=== PATIENT | male | born 1975 | race Asian ===

== ENCOUNTER 2020-01-27 15:36 | Emergency (ER) | payer OTHER ==
[2020-01-27] MEDS ORDERED: NA CHLORIDE 0.9% 1,000 ML ONE (16:36)
[2020-01-27] MEDS ORDERED: NITROGLYCERIN/D5W 50 MG/250 ML BTL IV ONE (16:43)
[2020-01-27 16:53] LABS: Absolute Lymphocytes (CBC) 1.5 K/uL (0.7-4.9); Basophils % 0.4 % (0-1.3); Hematocrit 44.6 % (39.6-49.0); Lymphocytes % 18.5 % (15.3-44.8); MPV 7.8 fL (7.6-11.3); RBC Red Blood Cell Count 5.23 M/uL (4.33-5.43)
[2020-01-27 16:54] LABS: Protime INR 0.97
--- NOTE | 2020-01-27 17:09 | RAD REPORT ---
EXAM DESCRIPTION: RAD - Chest Single View - 01/27/2020 4:45 pm CLINICAL HISTORY: CHEST PAIN COMPARISON: June 2015 TECHNIQUE: AP portable chest image was obtained 01/27/2020 4:45 pm . FINDINGS: Lungs are clear. Heart and vasculature are normal. No measurable pleural effusion and no p neumothorax. No acute bony abnormality seen. No acute aortic findings suspected. IMPRESSION: No acute cardiopulmonary process.
[2020-01-27 17:17] LABS: ALT/SGPT 127 U/L (12-78); AST/SGOT 50 U/L (15-37); Albumin 4.2 g/dL (3.4-5.0); Alkaline Phosphatase 63 U/L (45-117); BUN Blood Urea Nitrogen 15 mg/dL (7-18); Bicarbonate 24 mmol/L (21-32); Bilirubin Direct 0.1 mg/dL (0-0.2); Bilirubin Total 0.4 mg/dL (0.2-1.0); Glucose Level 131 mg/dL (74-106); Magnesium 2.2 mg/dL (1.8-2.4); NT PRO-BNP 11 pg/mL (<125); Potassium 3.7 mmol/L (3.5-5.1); Protein, Total 8.2 g/dL (6.4-8.2); Sodium Level 139 mmol/L (136-145); Troponin (Emerg Dept Use Only) < 0.02 ng/mL (0.0-0.045)
--- NOTE | 2020-01-27 19:17 | RAD REPORT ---
EXAM DESCRIPTION: CT - Head Brain Wo Cont - 01/27/2020 7:08 pm CLINICAL HISTORY: HEADACHE, hypertension COMPARISON: No comparisons TECHNIQUE: Axial 5 mm thick images of the head were obtained without IV contrast. All CT scans are performed using dose optimization technique as appropriate and may include automated exposure control or mA/KV adjustment according to patient size. FINDINGS: No intracranial hemorrhage, mass, edema or shift of mid-line structures. No acute infarcti on changes seen. No abnormal extra-axial fluid collections. Ventricles are normal. Mastoid air cells and visualized portions of the paranasal sinuses are clear. No acute bony findings. IMPRESSION: Negative non-contrast CT head examination.
--- NOTE | 2020-01-27 19:24 | EDPHYS ---
Physician Documentation [facility] Name: Efren Bedoya Age: 44 yrs Sex: Male : 1975 Arrival Date: 01/27/2020 Time: 15:40 Bed 15 Private MD: ED Physician Hunter Reyes HPI: 01/26 17:57 This 44 yrs old Male presents to ER via Ambulatory with complaints of High Blood kb Pressure, Fast Heart rate. 17:57 The patient has elevated blood pressure and discovered this at home, with a home kb device. Onset: The symptoms/episode began/occurred 1 week(s) ago. Associated signs and symptoms: Pertinent positives: headache, lightheadedness, weakness, Pertinent negatives: chest pain, dizziness, dyspnea, nausea, visual changes, vomiting. Severity of symptoms: At its worst the blood pressure was 140 mm Hg. The patient has not experienced similar symptoms in the past. The patient has not recently seen a physician. Pt reports his heart rate and blood pressure have been elevated over the last week. Reports he had a headache a few times over the last week, none today. Reports he had some chest pressure for a little while last week, but none since then. States he was shaky, lightheaded and weak this morning so he checked his blood sugar and it was 60. After eating he felt better, but was anxious about it all so he wanted to come and get checked out.. Historical: - Allergies: 15:47 NKA; sv - PMHx: 15:47 High Cholesterol; Hypertension; sv - PSHx: 15:47 Appendectomy; sv - Immunization history:: Flu vaccine is up to date. - Social history:: Smoking status: Patient reports the use of cigarette tobacco products, denies chronic smoking, but will smoke occasionally. ROS: 17:56 Constitutional: Negative for fever, chills, and weight loss, Neck: Negative for injury, kb pain, and swelling, Cardiovascular: Negative for chest pain, palpitations, and edema, Respiratory: Negative for shortness of breath, cough, wheezing, and pleuritic chest pain, Abdomen/GI: Negative for abdominal pain, nausea, vomiting, diarrhea, and constipation, Back: Negative for injury and pain, MS/Extremity: Negative for injury and deformity, Skin: Negative for injury, rash, and discoloration. 17:56 Neuro: Positive for weakness, "shaky". Exam: 17:05 Constitutional: This is a well developed, well nourished patient who is awake, alert, kb and in no acute distress. Head/Face: Normocephalic, atraumatic. Eyes: Pupils equal round and reactive to light, extra-ocular motions intact. Lids and lashes normal. Conjunctiva and sclera are non-icteric and not injected. Cornea within normal limits. Periorbital areas with no swelling, redness, or edema. ENT: Nares patent. No nasal discharge, no septal abnormalities noted. Tympanic membranes are normal and external auditory canals are clear. Oropharynx with no redness, swelling, or masses, exudates, or evidence of obstruction, uvula midline. Mucous membranes moist. Neck: Trachea midline, no thyromegaly or masses palpated, and no cervical lymphadenopathy. Supple, full range of motion without nuchal rigidity, or vertebral point tenderness. No Meningismus. Chest/axilla: Normal chest wall appearance and motion. Nontender with no deformity. No lesions are appreciated. Respiratory: Lungs have equal breath sounds bilaterally, clear to auscultation and percussion. No rales, rhonchi or wheezes noted. No increased work of breathing, no retractions or nasal flaring. Abdomen/GI: Soft, non-tender, with normal bowel sounds. No distension or tympany. No guarding or rebound. No evidence of tenderness throughout. Skin: Warm, dry with normal turgor. Normal color with no rashes, no lesions, and no evidence of cellulitis. MS/ Extremity: Pulses equal, no cyanosis. Neurovascular intact. Full, normal range of motion. Neuro: Awake and alert, GCS 15, oriented to person, place, time, and situation. Cranial nerves II-XII grossly intact. Motor strength 5/5 in all extremities. Sensory grossly intact. Cerebellar exam normal. Normal gait. 17:05 Cardiovascular: Rate: tachycardic, Rhythm: regular, Pulses: no pulse deficits are appreciated, Heart sounds: normal, normal S1and S2, no murmur. 17:06 ECG was reviewed by the Attending Physician. Vital Signs: 15:45 BP 153 / 99; Pulse 112; Resp 18; Temp 98.5; Pulse Ox 100% ; Weight 99.79 kg; Height 5 sv ft. 7 in. (170.18 cm); 16:30 BP 135 / 95; Pulse 102; Resp 13; Pulse Ox 100% ; ah 17:30 BP 131 / 90; Pulse 95; Resp 15; Pulse Ox 100% ; ah 18:30 BP 142 / 92; Pulse 106; Resp 17; Pulse Ox 100% ; ah 19:00 BP 138 / 92; Pulse 99; Resp 17; Pulse Ox 100% ; ah 15:45 Body Mass Index 34.46 (99.79 kg, 170.18 cm) sv MDM: 16:14 Patient medically screened. kb 17:57 Data reviewed: vital signs, nurses notes. Data interpreted: Pulse oximetry: on room air kb is 100 %. Interpretation: normal. Counseling: I had a detailed discussion with the patient and/or guardian regarding: the historical points, exam findings, and any diagnostic results supporting the discharge/admit diagnosis, lab results, radiology results, the need for outpatient follow up, a family practitioner, to return to the emergency department if symptoms worsen or persist or if there are any questions or concerns that arise at home. 01/26 16:20 Order name: Basic Metabolic Panel; Complete Time: 17:22 kb 01/26 16:20 Order name: CBC with Diff; Complete Time: 16:57 kb 01/26 16:20 Order name: LFT's; Complete Time: 17:22 kb 01/26 16:20 Order name: Magnesium; Complete Time: 17:22 kb 01/26 16:20 Order name: NT PRO-BNP; Complete Time: 17:22 kb 01/26 16:20 Order name: PT-INR; Complete Time: 16:55 kb 01/26 16:20 Order name: Troponin (emerg Dept Use Only); Complete Time: 17:22 kb 01/26 16:20 Order name: XRAY Chest (1 view); Complete Time: 17:12 kb 01/26 16:20 Order name: EKG; Complete Time: 16:21 kb 01/26 16:20 Order name: Cardiac monitoring; Complete Time: 16:33 kb 01/26 18:16 Order name: Troponin (emerg Dept Use Only); Complete Time: 19:07 iw 01/26 18:30 Order name: CT Head Brain wo Cont; Complete Time: 19:21 kb 01/26 16:20 Order name: EKG - Nurse/Tech; Complete Time: 16:34 kb 01/26 16:20 Order name: IV Saline Lock; Complete Time: 16:47 kb 01/26 16:20 Order name: Labs collected and sent; Complete Time: 16:47 kb 01/26 16:20 Order name: O2 Per Protocol; Complete Time: 16:33 kb 01/26 16:20 Order name: O2 Sat Monitoring; Complete Time: 16:33 kb 01/26 17:51 Order name: Vital Signs; Complete Time: 18:31 kb 01/26 18:16 Order name: EKG - Nurse/Tech; Complete Time: 18:30 iw EC:06 Rate is 102 beats/min. Rhythm is regular, Sinus tachycardia. QRS Kerrick is Normal. MT kb interval is normal at 198 msec. QRS interval is normal at 84 msec. QT interval is normal at 338 msec. Administered Medications: 16:49 Drug: NS 0.9% 1000 ml Route: IV; Rate: 1000 ml; Site: left antecubital; 19:49 Follow up: Response: No adverse reaction; IV Status: Completed infusion 19:11 Not Given (per order, Pt denies headache): Tylenol 1000 mg PO once ah Disposition: 01/27/20 19:24 Discharged to Home. Impression: Essential (primary) hypertension. - Condition is Stable. - Discharge Instructions: Hypertension, [id number], General Headache Without Cause, Wkbx-ti-Kakn. - Medication Reconciliation Form, Thank You Letter, Antibiotic Education, Prescription Opioid Use form. - Follow up: Emergency Department; When: As needed; Reason: Worsening of condition. Follow up: Private Physician; When: 2 - 3 days; Reason: Recheck today's complaints, Continuance of care, Re-evaluation by your physician. Signatures: Dispatcher [employer] EDKS Iris Santillan, DAVID-C INSURANCE SALES PROFESSIONAL-Sophia Romero RN Kika Sanchez RN RN iw Harris, Amy, RN RN Corrections: (The following items were deleted from the chart) 20:02 19:24 01/27/2020 19:24 Discharged to Home. Impression: Essential (primary) ah hypertension. Condition is Stable. Forms are Medication Reconciliation Form, Thank You Letter, Antibiotic Education, Prescription Opioid Use. Follow up: Emergency Department; When: As needed; Reason: Worsening of condition. Follow up: Private Physician; When: 2 - 3 days; Reason: Recheck today's complaints, Continuance of care, Re-evaluation by your physician. kb
--- NOTE | 2020-01-27 19:24 | ER ---
Nurse's Notes [facility] Name: Efren Bedoya Age: 44 yrs Sex: Male : 1975 Arrival Date: 01/27/2020 Time: 15:40 Bed 15 Private MD: Diagnosis: Essential (primary) hypertension Presentation: 01/26 15:45 Chief complaint: Patient states: HTN SPB 140 and tachycardia in the 110s, "Today I felt sv kind of uneasy." c/o headache. Denies CP, SOB, dizziness. Coronavirus screen: Proceed with normal triage. Patient denies a cough. Patient denies shortness of breath or difficulty breathing. Patient denies measured and/or subjective temperature greater than 100.4F prior to today's visit. Patient denies travel on a cruise ship or to a country the [facility] currently lists as an affected area. Patient denies contact with known and/or suspected case of COVID-19. Ebola Screen: No symptoms or risks identified at this time. Initial Sepsis Screen: Does the patient meet any 2 criteria? HR > 90 bpm. No. Patient's initial sepsis screen is negative. Does the patient have a suspected source of infection? No. Patient's initial sepsis screen is negative. Risk Assessment: Do you want to hurt yourself or someone else? Patient reports no desire to harm self or others. Onset of symptoms was January 27, 2020. 15:45 Method Of Arrival: Ambulatory sv 15:45 Acuity: GRACE 2 sv Triage Assessment: 15:47 General: Appears in no apparent distress. uncomfortable, Behavior is calm, cooperative, sv appropriate for age. Neuro: Level of Consciousness is awake, alert, obeys commands, Gait is steady. Respiratory: Respiratory effort is even, unlabored, Respiratory pattern is regular, symmetrical. Historical: - Allergies: 15:47 NKA; sv - PMHx: 15:47 High Cholesterol; Hypertension; sv - PSHx: 15:47 Appendectomy; sv - Immunization history:: Flu vaccine is up to date. - Social history:: Smoking status: Patient reports the use of cigarette tobacco products, denies chronic smoking, but will smoke occasionally. Screenin:27 Abuse screen: Denies threats or abuse. Nutritional screening: No deficits noted. Tuberculosis screening: No symptoms or risk factors identified. Fall Risk None identified. Assessment: 16:40 General: Appears in no apparent distress. Behavior is calm, cooperative. Pain: Denies ah pain. Neuro: Level of Consciousness is awake, alert, Oriented to person, place, time. Cardiovascular: Heart tones S1 S2 present Capillary refill < 3 seconds Patient's skin is warm and dry. Cardiovascular: Rhythm is sinus tachycardia Chest pain is denied. Respiratory: Airway is patent Respiratory effort is even, unlabored, Respiratory pattern is regular, symmetrical, Breath sounds are clear bilaterally. GI: Abdomen is non-distended, Bowel sounds present X 4 quads. Abd is non tender. : No signs and/or symptoms were reported regarding the genitourinary system. EENT: No signs and/or symptoms were reported regarding the EENT system. Derm: No signs and/or symptoms reported regarding the dermatologic system. Musculoskeletal: No signs and/or symptoms reported regarding the musculoskeletal system. 17:45 Reassessment: No changes from previously documented assessment. Patient is alert, ah oriented x 3, equal unlabored respirations, skin warm/dry/pink. Patient denies pain at this time. 19:00 Reassessment: Awaiting results from radiology. 19:45 Reassessment: Discharge instructions given to Pt. Advised Pt to follow up with PCP next week. Pt voiced understanding. Vital Signs: 15:45 BP 153 / 99; Pulse 112; Resp 18; Temp 98.5; Pulse Ox 100% ; Weight 99.79 kg; Height 5 sv ft. 7 in. (170.18 cm); 16:30 BP 135 / 95; Pulse 102; Resp 13; Pulse Ox 100% ; ah 17:30 BP 131 / 90; Pulse 95; Resp 15; Pulse Ox 100% ; ah 18:30 BP 142 / 92; Pulse 106; Resp 17; Pulse Ox 100% ; ah 19:00 BP 138 / 92; Pulse 99; Resp 17; Pulse Ox 100% ; ah 15:45 Body Mass Index 34.46 (99.79 kg, 170.18 cm) sv ED Course: 15:40 Patient arrived in ED. mr 15:46 Triage completed. sv 15:47 Arm band placed on. sv 15:49 Natalie Luciano, RN is Primary Nurse. ah 16:10 EKG done, by ED staff, reviewed by Iris WILL. jp3 16:14 Iris Sanitllan FNP-C is [facility]. kb 16:14 Hunter Reyes DO is Attending Physician. kb 16:35 Inserted saline lock: 22 gauge in left antecubital area, using aseptic technique. Missed attempt(s): 22 gauge in right antecubital area. Bleeding controlled, band aid applied, catheter tip intact. 16:35 Initial lab(s) drawn, by ED staff, sent to lab. [facility] 16:46 XRAY Chest (1 view) In Process Unspecified. EDMS 18:29 Repeat lab(s) drawn. by ct, sent to lab. EKG done, by ED staff, reviewed by Iris WILL. 18:30 Patient has correct armband on for positive identification. Placed in gown. Bed in low ah position. Call light in reach. Side rails up X 1. 18:30 No provider procedures requiring assistance completed. IV discontinued, intact, ah bleeding controlled, No redness/swelling at site. Pressure dressing applied. 18:31 Troponin (emerg Dept Use Only) Sent. jp3 19:[address] via stretcher. 19:08 CT Head Brain wo Cont In Process Unspecified. EDMS 19:11 Patient moved back from CT. Administered Medications: 16:49 Drug: NS 0.9% 1000 ml Route: IV; Rate: 1000 ml; Site: left antecubital; 19:49 Follow up: Response: No adverse reaction; IV Status: Completed infusion 19:11 Not Given (per order, Pt denies headache): Tylenol 1000 mg PO once ah Outcome: 19:24 Discharge ordered by MD. kb 19:45 Discharged to home ambulatory. 19:45 Condition: stable 19:45 Discharge instructions given to patient, Instructed on discharge instructions, follow up and referral plans. Demonstrated understanding of instructions, follow-up care. 20:02 Patient left the ED. Signatures: Dispatcher [employer] EDCO Iris Santillan FNP-C FNP-Sophia Romero, RN Torrie Taylor mr HermanCarl 3 Natalie Luciano RN RN ah
[2020-01-27 20:15] VITALS: TEMP 98.5; O2SAT 100
[2020-01-27 20:20] VITALS: BP 138/92
--- NOTE | 2020-01-28 07:34 | EKG ---
Test Date: 2020-01-27 Test Time: 18:20:37 Java Project Manager: RAAD MEASUREMENT RESULTS: Intervals: Rate: 94 [place]: 204 QRSD: 80 QT: 362 QTc: 452 Ulysses: P: 75 [place]: 204 QRS: 68 T: 49 INTERPRETIVE STATEMENTS: Normal sinus rhythm Normal ECG No previous ECG available for comparison Electronically Signed On 01-28-20 07:33:07 CDT by Joseph Arita
--- NOTE | 2020-01-30 20:17 | EKG ---
Test Date: 2020-01-27 Test Time: 16:10:47 Industrial Relations Analyst: Bogdan Luciano MEASUREMENT RESULTS: Intervals: Rate: 102 [place]: 198 QRSD: 84 QT: 338 QTc: 440 Gray: P: 63 [place]: 198 QRS: 30 T: 41 INTERPRETIVE STATEMENTS: Sinus tachycardia Otherwise normal ECG No previous ECG available for comparison Electronically Signed On 01-30-20 20:11:35 CDT by Joseph Arita
== END 2020-01-27 20:02 | disposition home or self-care (01) ==
LOC: ER 15:36
DX: I10 Essential (primary) hypertension (principal); Z72.0 Tobacco use
CPT/HCPCS: 96361; 93005 ×2; 85025; 80048; 36415; 83735; 85610; 80076; 84484 ×2; 83880; 70450; 71045; 96360; 99285; J7030

== ENCOUNTER 2020-09-13 07:12 | Day surgery (SDC) | payer OTHER ==
--- OUTSIDE RECORDS SUMMARY | 2020-09-13 07:23 | XMS REPORT | Continuity of Care Document ---
:1975 Author Organization [facility] t Address [address] [place] [address] Care Team Providers Name Role Phone Lab, Fam Pob I Attending Clinician Unavailable Doctor Unassigned, Name Attending Clinician Unavailable Problems This patient has no known problems. Allergies, Adverse Reactions, Alerts This patient has no known allergies or adverse reactions. Medications This patient has no known medications. Procedures This patient has no known procedures. Encounters Start End Encounter Admission Attending Care Care Encounter Source Date/Time Date/Time Type Type Clinicians Facility Department ID 2020-09-12 2020-09-12 Laboratory Lab, [facility] [id number] 10:15:02 10:35:02 Only Fam Pob I Health [id number] [place] [id number] Professio [phone] nal [address] 2020-05-14 2020-05-14 Laboratory Lab, [facility] [id number] 16:58:56 17:05:22 Only Fam Pob I Health [id number] [place] [id number] Professio [phone] nal 0[address] 2020-05-14 2020-05-14 Letter Doctor HORVATH [id number] 00:00:00 00:00:00 (Out) UnassignedMATHEW [id number] [place] [facility] [id number] [id number] 2020-05-14 2020-05-14 Letter Doctor HORVATH [id number] 00:00:00 00:00:00 (Out) Unassigned, MATHEW [id number] [place] [facility] [phone] 044 Results This patient has no known results.
--- OUTSIDE RECORDS SUMMARY | 2020-09-13 07:23 | XMS REPORT | Summary of Care ---
:1975 Author Organization [facility] [employer] Address [address] [place] [address] Care Team Providers Name Role Phone Pcp, Does Not Have A Primary Care Provider Reason for Visit Reason Comments LAB Encounter Details Date Type Department Care Team Description 09/12/2020 Laboratory Only [facility] Family Juan José, NICOLASA Feng [address] [place], [place] [address] [address] Contact with or Medicine - [place] [facility], Adc Fam Pob I exposure to viral [address] [place] [address] disease (P rimary Dx) [place] [address] Allergies Not on Filedocumented as of this encounter (statuses as of 09/12/2020) Medications Not on filedocumented as of this encounter (statuses as of 09/12/2020) Active Problems Not on filedocumented as of this encounter (statuses as of 09/12/2020) Social History Tobacco Use Types Packs/Day Years Used Date Never Assessed Sex Assigned at Date Recorded Not on file COVID-19 Exposure Response Date Recorded In the last month, have you been in contact with No / Unsure 09/12/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 documented as of this encounter Last Filed Vital Signs Not on filedocumented in this encounter Nursing Notes Vamshi Cooper MA - 09/12/2020 10:20 AM Jim Copeland Elke is a 44 year old male here for COVID Screening with a Nasopharyngeal Swab All droplet and contact precautions taken with appropriate PPE worn while interacting with patient. ? Goggles ? N95 Mask ? Gloves ? Gown RR 14 Pulse 85 Ox 97% Patient educated on plan of care for visit, swabbing technique, risks and benefits of test and length of time to receive results. Verbal consent obtained to perform test. CDC Fact Sheet for Patients nCoV Diagnostic Panel dated 12/18/2019 and Factsheet What to Do if Sick with COVID 19 11/28/19 provided. Bilate nares swabbed during COVID19 nasopharyngeal swab. Patient swabbed per appropriate nasopharyngeal technique, and patient tolerated well. Patient was discharged from the testing clinic in stable condition. VAMSHI COOPER MA 09/12/2020 10:33 AM DWORKS DESIGNER documented in this encounter Plan of Treatment Name Type Priority Associated Diagnoses Order S chedule COVID-19 (MOLECULAR LAB Routine Contact with or expos ure Expected: 09/12/2020, TESTING to viral disease Expires: 2020 NUCLEIC ACID AMPLIFICATION) Health Maintenance Due Date Last Done Comments Depression Screening 1986 DTaP,Tdap,and Td Vaccines (1 - 1993 Tdap) INFLUENZA VACCINE (#1) 2020 Colorectal Cancer Screening 2024 PNEUMOCOCCAL 0-64 YEARS COMBINED Aged Out No longer eligible based on SERIES patient's age to complete this topic documented as of this encounter Results Not on filedocumented in this encounter Visit Diagnoses Diagnosis Contact with or exposure to viral diseas e - Primary Contact with or exposure to other viral diseases documented in this encounter Additional Health Concerns Infection Onset Date Last Indicated Resolved Time COVID-19 Rule Out 09/12/2020 09/12/2020 documented as of this encounter documented as of this encounter
[2020-09-13] MEDS ORDERED: Ringers Lactate 1,000 ML IV ONE (07:41)
[2020-09-13] MEDS ORDERED: propofoL 200 MG/20 ML VIAL IV ONE ×2 (08:55)
[2020-09-13] MEDS ORDERED: EPINEPHRINE/PF 1 MG/ML AMP ONE (09:02)
[2020-09-13 09:52] VITALS: TEMP 98.5
[2020-09-13 09:57] VITALS: BP 120/70; O2SAT 100
--- NOTE | 2020-09-13 10:38 | OP ---
Surgeon: Moises Ureña MD Procedure Performed: Esophagogastroduodenoscopy. Indication For Procedure: Right upper quadrant pain, abdominal pain, change in bowel. Plan For Anesthesia: Monitored anesthesia care. Complexity: Average. Technique: After obtaining informed consent from the patient and explaining risks and complications, which include, but are not limited to bleeding, infection, perforation, and anesthesia complication, patient was placed in the left lateral position. Sedation was given. From then on, the scope was a dvanced to the mouth and carefully guided up till the third portion of the duodenum. After the compl etion of examination, scope and equipment were withdrawn and procedure terminated in a safe manner. Findings: Esophagus: No gross lesion seen in the upper and mid esophagus. In the distal esophagus, the Z-line was irregular. Biopsies were taken. Stomach: Mild patchy erythema seen in the body and antrum, biopsies taken. Duodenum: No gross lesion seen in the entire examined duodenum. The small bowel biopsies taken. Complications: None. Tolerance To Anesthesia: Excellent. Postoperative Diagnosis: Irregular Z-line gastritis. Plan: 1.Await pathology results. 2.Continue PPI. 3.Follow up with Dr. Duenas as the upper endoscopy is essentially negative, pending biopsies, and i f symptoms likely due to cholelithiasis. US/MODL Voice ID: [id number] Report ID: [id number]
== END 2020-09-13 09:47 | disposition home health service (06) ==
LOC: OR 07:12
PROVIDERS: ATTEND Internal Medicine Gastroenterology
PROC: 0DB88ZX Excision of Small Intestine, Via Natural or Artificial Opening Endoscopic, Diagnostic (ICD-10-PCS; 2020-09-13)
PROC: 0DB68ZX Excision of Stomach, Via Natural or Artificial Opening Endoscopic, Diagnostic (ICD-10-PCS; 2020-09-13)
PROC: 0DB38ZX Excision of Lower Esophagus, Via Natural or Artificial Opening Endoscopic, Diagnostic (ICD-10-PCS; principal; 2020-09-13 08:45)
DX: K29.50 Unspecified chronic gastritis without bleeding (principal); K21.00 Gastro-esophageal reflux disease with esophagitis, without bleeding; Z20.828 Contact with and (suspected) exposure to other viral communicable diseases; K76.0 Fatty (change of) liver, not elsewhere classified; I10 Essential (primary) hypertension; R19.4 Change in bowel habit; E66.9 Obesity, unspecified; E78.00 Pure hypercholesterolemia, unspecified; Z68.32 Body mass index [BMI] 32.0-32.9, adult
CPT/HCPCS: 88312; 88305; 43239; U0002; J2704; J7120; J0171

== ENCOUNTER 2021-03-06 09:58 | Emergency (ER) | payer OTHER ==
--- OUTSIDE RECORDS SUMMARY | 2021-03-06 10:00 | XMS REPORT | Continuity of Care Document ---
:[address] [facility] t Address [address] [place] [address] Care Team Providers Name Role Phone Lab, [...] Facility Department ID 2020-09-12 2020-09-12 Laboratory Lab, [facility] [id number] 10:15:02 10:35:02 Only Fam Pob I Health [id number] [place] [id number] Professio [phone] nal 0[address] 2020-05-14 2020-05-14 Laboratory Lab, [facility] [id number] 16:58:56 17:05:22 Only Fam Pob I Health [id number] [place] [id number] Professio [phone] nal 0[address] 2020-05-14 2020-05-14 Letter Doctor HORVATH [id number] 00:00:00 00:00:00 (Out) Unassigned, MATHEW [id number] [place] [facility] [phone] [id number] 2020-05-14 2020-05-14 Letter Doctor HORVATH [id number] 00:00:00 00:00:00 (Out) Unassigned, MATHEW [id number] [place] [facility] [id number] 044 Results This patient has no known results.
--- NOTE | 2021-03-06 10:38 | RAD REPORT ---
EXAM DESCRIPTION: RAD - Ankle Left 3 View - 03/06/2021 10:29 am CLINICAL HISTORY: PAIN COMPARISON: No comparisons FINDINGS: Mild soft tissue swelling is seen about the ankle. Small calcaneal spurs are present. No a cute fracture or dislocation seen.
--- NOTE | 2021-03-06 10:48 | EDPHYS ---
Physician Documentation [facility] Name: Efren Bedoya Age: 45 yrs Sex: Male : 1975 Arrival Date: 03/06/2021 Time: 10:00 Bed 16 Private MD: ED Physician Luan Ashraf HPI: 03/06 10:13 This 45 yrs old Male presents to ER via Ambulatory with complaints of Foot Pain. kb 10:13 The patient has not experienced similar symptoms in the past. The patient has not kb recently seen a physician. 10:13 The patient presents with pain, that is acute, tenderness. The complaints affect the kb left ankle. Onset: The symptoms/episode began/occurred yesterday. Context: The problem was sustained at home, resulted from an unknown cause, The patient is unable to bear weight. must have assistance. Associated signs and symptoms: The patient has no apparent associated signs or symptoms. Modifying factors: The symptoms are alleviated by nothing, the symptoms are aggravated by weight bearing. Severity of symptoms: At their worst the symptoms were mild, moderate, in the emergency department the symptoms are unchanged. Pt reports he twisted his ankle 2-3 weeks ago. It was painful at the time, but resolved. Yesterday walked on the sand and was having pain in left ankle again. This morning he could not bear weight due to pain. . Historical: - Allergies: 10:11 NKA; ph - PMHx: 10:11 High Cholesterol; Hypertension; ph - PSHx: 10:11 Appendectomy; ph - Immunization history:: Adult Immunizations up to date, Client reports receiving the 2nd dose of the Covid vaccine. - Social history:: Smoking status: Patient denies any tobacco usage or history of. ROS: 10:12 Constitutional: Negative for fever, chills, and weight loss. kb 10:12 MS/extremity: Positive for pain, tenderness, of the left lateral ankle. 10:12 All other systems are negative. Exam: 10:11 Constitutional: This is a well developed, well nourished patient who is awake, alert, kb and in no acute distress. Respiratory: Respirations even and unlabored. No increased work of breathing, no retractions or nasal flaring. Skin: Warm, dry with normal turgor. Normal color. Neuro: Awake and alert, GCS 15, oriented to person, place, time, and situation. Moves all extremities. Psych: Awake, alert, with orientation to person, place and time. Behavior, mood, and affect are within normal limits. 10:11 Musculoskeletal/extremity: Extremities: grossly normal except: noted in the left lateral ankle: pain, swelling, tenderness, ROM: limited active range of motion due to pain, in the left lateral ankle, Circulation is intact in all extremities. Sensation intact. Weight bearing: is unable to bear weight. Vital Signs: 10:09 BP 127 / 89; Pulse 73; Resp 18; Temp 97.9; Pulse Ox 100% on R/A; Weight 84.82 kg; ph Height 5 ft. 8 in. (172.72 cm); Pain 7/10; 10:55 BP 124 / 79; Pulse 68; Resp 20; Pulse Ox 100% on R/A; kg 10:09 Body Mass Index 28.43 (84.82 kg, 172.72 cm) ph MDM: 10:04 Patient medically screened. kb 10:11 Data reviewed: vital signs, nurses notes. Data interpreted: Pulse oximetry: on room air kb is 100 %. Interpretation: normal. 10:46 Counseling: I had a detailed discussion with the patient and/or guardian regarding: the kb historical points, exam findings, and any diagnostic results supporting the discharge/admit diagnosis, radiology results, the need for outpatient follow up, a family practitioner, to return to the emergency department if symptoms worsen or persist or if there are any questions or concerns that arise at home. 03/06 10:11 Order name: Ankle Left 3 View XRAY; Complete Time: 10:43 kb 03/06 10:47 Order name: Xavi Wrap; Complete Time: 10:58 kb Administered Medications: 10:40 Drug: [place] (HYDROcodone-acetaminophen) 5 mg-325 mg 1 tabs Route: PO; kg 10:58 Follow up: Response: No adverse reaction; Marked relief of symptoms kg Disposition: 18:30 Co-signature as Attending Physician, Luan Ashraf MD I agree with the assessment and tw4 plan of care. Disposition: 03/06/21 10:47 Discharged to Home. Impression: Sprain of ankle. - Condition is Stable. - Discharge Instructions: Ankle Sprain, [id number]. - Medication Reconciliation Form, Thank You Letter, Antibiotic Education, Prescription Opioid Use form. - Work release form (03/06/21 11:09). kg - Follow up: Emergency Department; When: As needed; Reason: Worsening of condition. Follow up: Private Physician; When: 2 - 3 days; Reason: Recheck today's complaints, Continuance of care, Re-evaluation by your physician. Signatures: Dispatcher [employer] EDMS Iris Santillan, SUMAN HERNANDEZ-Aleena Dong RN RN Luan Ashraf MD MD tw4 Pretty Ledezma kg Corrections: (The following items were deleted from the chart) 10:47 10:11 Musculoskeletal/extremity: Extremities: grossly normal except: noted in the left kb lateral ankle: pain, tenderness, ROM: limited active range of motion due to pain, in the left lateral ankle, Circulation is intact in all extremities. Sensation intact. Weight bearing: is unable to bear weight, kb 11:05 10:47 03/06/2021 10:47 Discharged to Home. Impression: Sprain of ankle. Condition is kg Stable. Forms are Medication Reconciliation Form, Thank You Letter, Antibiotic Education, Prescription Opioid Use. Follow up: Emergency Department; When: As needed; Reason: Worsening of condition. Follow up: Private Physician; When: 2 - 3 days; Reason: Recheck today's complaints, Continuance of care, Re-evaluation by your physician. kb
--- NOTE | 2021-03-06 10:48 | ER ---
Nurse's Notes [facility] Name: Efren Bedoya Age: 45 yrs Sex: Male : 1975 Arrival Date: 03/06/2021 Time: 10:00 Bed 16 Private MD: Diagnosis: Sprain of ankle Presentation: 03/06 10:09 Chief complaint: Patient states: Pain in L ankle, reports tripping approx 2 weeks ago, ph states, " It had gotten better and then started hurting me again today." Pt ambulatory to exam room. Coronavirus screen: Client denies travel out of the [place] in the last 14 days. Ebola Screen: No symptoms or risks identified at this time. Initial Sepsis Screen: Does the patient meet any 2 criteria? No. Patient's initial sepsis screen is negative. Does the patient have a suspected source of infection? No. Patient's initial sepsis screen is negative. Risk Assessment: Do you want to hurt yourself or someone else? Patient reports no desire to harm self or others. Onset of symptoms was March 06, 2021. 10:09 Method Of Arrival: Ambulatory 10:09 Acuity: GRACE 4 ph Historical: - Allergies: 10:11 NKA; ph - PMHx: 10:11 High Cholesterol; Hypertension; ph - PSHx: 10:11 Appendectomy; ph - Immunization history:: Adult Immunizations up to date, Client reports receiving the 2nd dose of the Covid vaccine. - Social history:: Smoking status: Patient denies any tobacco usage or history of. Screenin:56 Abuse screen: Denies threats or abuse. Denies injuries from another. Nutritional kg screening: No deficits noted. Tuberculosis screening: No symptoms or risk factors identified. Fall Risk No fall in past 12 months (0 pts). No secondary diagnosis (0 pts). No IV (0 pts). Ambulatory Aid- None/Bed Rest/Nurse Assist (0 pts). Gait- Impaired (20 pts.). Mental Status- Oriented to own ability (0 pts). Total Hodgson Fall Scale indicates No Risk (0-24 pts). Assessment: 10:53 General: Appears in no apparent distress. Behavior is calm, cooperative, appropriate kg for age, quiet. Pain: Complains of pain in left lateral ankle, lateral aspect of left foot, left Achilles, left heel, left medial ankle, medial aspect of left foot, anterior aspect of left ankle and dorsum of left foot Pain does not radiate. Pain currently is 8 out of 10 on a pain scale. at worst was 8 out of 10 on a pain scale. level that patient reports is acceptable is 3 out of 10 on a pain scale. Quality of pain is described as aching, sharp, Pain began 1 day ago. Is continuous. Pain: Alleviated by rest, Aggravated by weight bearing. Neuro: No deficits noted. Neuro: No deficits noted. Level of Consciousness is awake, alert, obeys commands, Oriented to person, place, time, situation. Cardiovascular: No deficits noted. Respiratory: No deficits noted. GI: No deficits noted. : No deficits noted. EENT: No deficits noted. Derm: No deficits noted. Musculoskeletal: Reports pain in left lateral ankle, lateral aspect of left foot, left Achilles, left heel, left medial ankle, medial aspect of left foot, anterior aspect of left ankle and dorsum of left foot Pain is 8 out of 10 on a pain scale. Vital Signs: 10:09 BP 127 / 89; Pulse 73; Resp 18; Temp 97.9; Pulse Ox 100% on R/A; Weight 84.82 kg; ph Height 5 ft. 8 in. (172.72 cm); Pain 7/10; 10:55 BP 124 / 79; Pulse 68; Resp 20; Pulse Ox 100% on R/A; kg 10:09 Body Mass Index 28.43 (84.82 kg, 172.72 cm) ph ED Course: 10:00 Patient arrived in ED. as 10:04 Iris Santillan FNP-C [facility]. kb 10:04 Luan Ashraf MD is Attending Physician. kb 10:11 Triage completed. ph 10:11 Arm band placed on Patient placed in an exam room, on a stretcher, on pulse oximetry. ph 10:29 Ankle Left 3 View XRAY In Process Unspecified. EDMS 10:31 Pretty Ledezma is Primary Nurse. kg 10:57 Patient has correct armband on for positive identification. Bed in low position. Call kg light in reach. Side rails up X 1. 10:57 No provider procedures requiring assistance completed. Patient did not have IV access kg during this emergency room visit. Xavi wrap to left ankle. Administered Medications: 10:40 Drug: [place] (HYDROcodone-acetaminophen) 5 mg-325 mg 1 tabs Route: PO; kg 10:58 Follow up: Response: No adverse reaction; Marked relief of symptoms kg Outcome: 10:47 Discharge ordered by . margaret 11:04 Discharged to home ambulatory. kg 11:04 Condition: good 11:04 Discharge instructions given to patient, Instructed on discharge instructions, follow up and referral plans. Demonstrated understanding of instructions, follow-up care. 11:05 Patient left the ED. kg Signatures: Dispatcher [employer] EDIris Hardy, DAVID-[employer] COUNSELOR-Jojo Naranjo Patricia, RN RN ph Pretty Ledezma kg
[2021-03-06] MEDS ORDERED: HYDROCODONE/APAP 5/325 MG TAB ONE (10:55)
[2021-03-06 11:09] VITALS: TEMP 97.9; O2SAT 100
[2021-03-06 11:11] VITALS: BP 124/79
== END 2021-03-06 11:05 | disposition home or self-care (01) ==
LOC: ER 09:58
DX: S93.402A Sprain of unspecified ligament of left ankle, initial encounter (principal); X50.1XXA Overexertion from prolonged static or awkward postures, initial encounter; Y93.01 Activity, walking, marching and hiking; Y92.009 Unspecified place in unspecified non-institutional (private) residence as the place of occurrence of the external cause; I10 Essential (primary) hypertension
CPT/HCPCS: 99284